=== PATIENT | female | born 1945 | race Caucasian/White ===

== ENCOUNTER 2024-11-11 20:10 | Emergency (ER) | payer MEDICARE, MEDICAID ==
[2024-11-11 22:38] VITALS: BP 135/90
== END 2024-11-11 22:39 | disposition home or self-care (01) ==
LOC: ED 20:10
DX: R04.0 Epistaxis (principal); W01.198A Fall on same level from slipping, tripping and stumbling with subsequent striking against other object, initial encounter; Y92.099 Unspecified place in other non-institutional residence as the place of occurrence of the external cause